=== PATIENT | female | born 1985 | race Two or more races ===

== ENCOUNTER 2020-02-03 14:41 | Emergency (ER) | payer OTHER ==
[~2020-02-03] VITALS: Ht 170.2 cm; Wt 72.6 kg
[~2020-02-03 14:41] MED LIST: CEFTIN500 MG PO; KETO10TA2 PO; NASONEX17 GM NS; PHENAGIL TABLE1 EACH PO
== END 2020-02-03 18:58 | disposition home or self-care (01) ==
LOC: ER 14:41
DX: N83.291 Other ovarian cyst, right side (principal); R10.31 Right lower quadrant pain

== ENCOUNTER 2020-07-14 17:24 | Emergency (ER) | payer OTHER ==
[~2020-07-14] VITALS: Ht 170.2 cm; Wt 59.0 kg
[2020-07-14] MEDS ORDERED: ZYRTEC10 M2 PO (21:12)
[2020-07-14] MEDS ORDERED: ALLERGY EYE DRO15 ML OP (21:12)
== END 2020-07-14 21:22 | disposition home or self-care (01) ==
LOC: ER 17:24
DX: H10.89 Other conjunctivitis (principal); H10.13 Acute atopic conjunctivitis, bilateral